=== PATIENT | male | born 1930 | race Caucasian/White ===

== ENCOUNTER 2016-12-23 06:34 | Inpatient (IN) | payer MEDICARE ==
--- NOTE | ~2016-12-23 | IDS ---
Interim Discharge Summary [facility] [address] [place]. [address] NAME: FAUSTINO HOPE : 29 STATUS : ADM IN [facility]#: [id number] AGE: 86 ADM/REG DATE : 12/23/16 MR#: [id number] REPORT SERV DATE: 12/27/16 DICTATED BY: DATE: REPORT STATUS : Draft TRANSCRIBED BY: MODL DATE: 12/27/16 ADMISSION DATE: 12/23/2016 DISCHARGE DATE: The patient has been cared for by the Hospitalist Service. ATTENDING DOCTOR: 1. Seth Clark MD. 2. Jose Whitney MD. CONSULTANTS: Included Speech Therapy. CURRENT DIAGNOSES: 1. Sepsis-due to left lower lobe and right lower lobe pneumonia and urinary tract infection. 2. Pansensitive E coli urinary tract infection. 3. Pansensitive E coli bacteremia. 4. Advanced Alzheimer's-essentially nonverbal, presently bed-bound. 5. Benign prostatic hypertrophy, status post TURP. 6. History of hypothyroidism-low TSH this admission. Repeat values pending for possible dose decrease. 7. History of chronic kidney disease, stage 3 with baseline creatinine 1.3-1.6, currently 0.9. 8. Probable anemia of chronic kidney disease. 9. Acute hypoxemic respiratory failure due to pneumonia-resolving. 10.Chronic constipation. 11.Rash-appears to be contact dermatitis. Monitor for possible drug reaction. 12.Generalized weakness-for probable inpatient rehab. 13.History of dysphagia, but no evidence of aspiration this admission. 14.History of chronic obstructive pulmonary disease. IMAGIN. Portable chest x-ray, 12/23, shows left basilar atelectasis versus infiltrate. 2. CT abdomen and pelvis, 12/23, shows right lower lobe pneumonia, cardiomegaly, coronary artery disease, marked enlargement of the prostate. Early impaction. Compression injury T11, age indeterminate. 3. Portable chest x-ray, 12/26, shows persistent left posterior infiltrate with minimal effusion. PERTINENT LABS: Admission blood gas; pH 7.43, pCO2 31, PO2 85, oxygen saturation 96% on 4 L nasal cannula. Creatinine values ranging from 0.9 to 1.3-at or below patient's baseline. Electrolytes have been normal. Liver enzymes have not been tested. TSH is 0.267 with repeat pending. Lactic acid level is normal. White blood cell count at admission 10.0, presently 5.8; hemoglobin values ranging from 10.6-9.2; platelets normal. Coagulation studies, normal. Urinalysis cloudy with trace ketones, large leukocyte esterase, nitrite positive, 143 red blood cells, greater than 182 white blood cells with many clumps, and Interim Discharge Summary [address] [place]. [address] NAME: FAUSTINO HOPE : 29 STATUS : ADM IN [facility]#: [id number] AGE: 86 ADM/REG DATE : 12/23/16 MR#: [id number] REPORT SERV DATE: 12/27/16 DICTATED BY: DATE: REPORT STATUS : Draft TRANSCRIBED BY: MODL DATE: 12/27/16 occasional bacteria. Blood cultures, 1/2 positive for pansensitive E coli. Urine culture positive for pansensitive E coli. BRIEF HISTORY: For full details, please see the previously dictated history of present illness by Dr. Chua. This is an 86-year-old white male with history of severe Alzheimer's dementia; chronic kidney disease, stage 3, who presents to the emergency department with reported fevers, decrease in mentation, increase in weakness. Initial evaluation in the emergency department notable for temperature with 101.6 degrees with a pulse of 89, blood pressure of 100/60. White blood cell count elevated at 10.0. Chest x- ray was nondiagnostic, but patient did demonstrate evidence of a urinary tract infection and clinical suspicion of pneumonia, and thus was admitted to the Hospitalist Service for management of sepsis due to pneumonia and UTI. HOSPITAL COURSE: The patient was admitted to [address] [place] [address], and had multiple attendings during his hospitalization. He has been seen by Dr. Seth Clark, Dr. Whitney, and on 12/27, seen by myself. His initial antibiotics have included cefepime, vancomycin, and Flagyl. He was treated with these antibiotics, through 12/25, at which point, he was transitioned to Levaquin for evidence of pansensitive E coli in the blood and urine. The patient was evaluated by the speech therapist and did not have any significant aspiration, although a modified diet was recommended. Thus, he was not felt to require treatment for ongoing aspiration pneumonia, rather community-acquired pneumonia with pansensitive E coli UTI and pansensitive E coli bacteremia. He has been treated with aggressive nebulizer treatments and pulmonary toilet. He remains weaker than baseline per his , who was concerned that he is not yet ready to return to [facility]. He resides in the memory care unit, which functions more as an assisted living. Thus, physical therapy evaluation for jail care and inpatient rehab at [facility] is requested. The patient will need to complete 14 days total of antibiotics for the E coli urinary tract infection with associated bacteremia. Only new issues today include note of a low TSH on current dose of levothyroxine. Repeat TSH and free T4 are pending for the morning for possible decrease in his home dose of levothyroxine. Also, he developed a nonspecific rash on his back this morning. The rash is only present on his back and no where else. Doubt that it is a reaction to Levaquin after two days of the antibiotic, and appears more like prickly heat or contact dermatitis. We will recommend treating with topical hydrocortisone for re-evaluation tomorrow. Also, his Kirkland catheter will be discontinued today, to ensure that he is able to void independently. DISPOSITION: Anticipate the patient will be able to discharge to jail facility at [facility] for additional physical rehabilitation prior to return to the memory unit, and anticipate that he may be able to discharge as early as 12/28 or 12/29 pending clinical course and necessary approvals. Interim Discharge Summary [address] [place]. [address] NAME: FAUSTINO HOPE : 29 STATUS : ADM IN [facility]#: [id number] AGE: 86 ADM/REG DATE : 12/23/16 MR#: [id number] REPORT SERV DATE: 12/27/16 DICTATED BY: DATE: REPORT STATUS : Draft TRANSCRIBED BY: LIANA DATE: 12/27/16 AKD[place]/LIANA Kike Harris M.D. / [id number] CC: Kike Harris M.D.
--- NOTE | ~2016-12-23 | DS ---
Discharge Summary [facility] [address] [place]. [address] NAME: FAUSTINO HOPE : 29 STATUS : DIS IN PAT#: [id number] AGE: 86 ADM/REG DATE : 12/23/16 MR#: [id number] REPORT SERV DATE: 12/30/16 DICTATED BY: ELVER FLORES DATE: 12/29/16 REPORT STATUS : Draft TRANSCRIBED BY: MODL DATE: 12/29/16 ADMISSION DATE: 12/23/2016 DISCHARGE DATE: 12/29/2016 Code status of the patient is DNR, comfort measures only, and transfer is to Hospice Care. DIAGNOSES ON TRANSFER: As follows: 1. Sepsis secondary to left lower lobe and right lower lobe pneumonia and urinary tract infection - this has resolved. 2. Aspiration pneumonia, this is stable. 3. Pansensitive E. coli urinary tract infection - the patient has received IV Levaquin, and in fact, continues to be on IV Levaquin for this. It is for Hospice to discontinue this. 4. So far the patient has received IV Levaquin from 12/23/[address] till 12/29/2016 which is a total of six days. OTHER DIAGNOSES: Also include: 1. Advanced dementia and bed-bound status and failure to thrive, the patient is pretty much nonverbal and bed bound as mentioned above. 2. Other chronic medical issues include benign prostatic hypertrophy, status post transurethral resection of prostate. 3. History of chronic kidney disease, stage III, with baseline creatinine fluctuating between 1.3 and 1.6 but now creatinine is actually 0.9. 4. Anemia of chronic disease. 5. Acute hypoxemic respiratory failure due to pneumonia that has resolved. 6. History of dysphagia but no evidence of aspiration during this admission actually. However, the patient may have aspirated previously and his pneumonia is most likely secondary to both infection and aspiration. BRIEF HOSPITAL COURSE: The patient is an 86-year-old patient with advanced dementia who was admitted to [facility] on the with worsening encephalopathy. For details, please see signs and symptoms in history and physical exam dictated by Dr. Chua on 12/23/2016. The patient essentially was brought in for fevers. Initially, he was found to be septic with fever and pneumonia in the left lower lobe and also urinary tract infection which eventually came back with growth of E. coli, which was pansensitive. Initially, his procalcitonin was only 0.2 and lactic acid was 1.2. The patient's overall status however was extremely poor because of extremely advanced dementia. The patient is very lethargic, barely opens his eyes, and this is baseline. He is able to eat something when family is able to get him to get up and eat, otherwise, his baseline is pretty much bed-bound. He was started on appropriate antibiotics, and cultures were obtained. Initially, he was on cefepime, vancomycin, and Flagyl for a while before the antibiotics were changed to Levaquin. The antibiotics were changed because his urine culture came back positive for E. coli sensitive to quinolones. Anyhow, for now, his sepsis has resolved but his mental status and chronic deconditioned Discharge Summary [address] [address] NAME: FAUSTINO HOPE : 28 STATUS : DIS IN PAT#: [id number] AGE: 86 ADM/REG DATE : 12/23/16 MR#: [id number] REPORT SERV DATE: 12/30/16 DICTATED BY: ELVER FLORES DATE: 12/29/16 REPORT STATUS : Draft TRANSCRIBED BY: MODL DATE: 12/29/16 status remains unchanged because of advanced dementia. After detailed discussion with , decided to accept hospice care and has been explained all other options. At this time, family has agreed for hospice care, and hence, I am transferring the patient to the care of [facility] at this time on 12/29/2016. DICTATED BY: Bam Brady/LIANA Elver Flores M.D. / [id number] CC: Elver Flores M.D.
--- NOTE | ~2016-12-23 | HP ---
History And Physical [place] [address] [facility] [place]. [address] NAME: FAUSTINO MARVIN : 28 STATUS : REG ER PAT#: [id number] AGE: 86 ADM/REG DATE : 12/23/16 MR#: [id number] REPORT SERV DATE: 12/23/16 DICTATED BY: DONNIE CHILD DATE: 12/23/16 REPORT STATUS : Draft TRANSCRIBED BY: MODL DATE: 12/23/16 DATE OF ADMISSION: 12/23/2016 POINT OF ENTRY: [facility] Emergency Department. CHIEF COMPLAINT: Fevers. HISTORY OF PRESENT ILLNESS: Mr. Marvin is an 86-year-old gentleman with history of severe Alzheimer's dementia, hypothyroidism, and chronic kidney disease stage 3, who presents to the emergency department today with reports of fevers. The patient has severe Alzheimer's dementia and history is obtained from the patient's who is at bedside as well as his caregiver. The patient is a long-term resident of the Memory Care Unit of [facility]. His lives in another location within [facility]. She states that all day Tuesday he was doing fine, on Tuesday she and the hired caregivers did notice that throughout the day he was becoming weaker and was sleeping more than usual. Otherwise, there were no additional symptoms that were out of the ordinary and his vitals which were checked throughout today were unremarkable. At approximately 2:00 a.m., his caregiver heard some choking or gurgling type sound, found him sitting up in bed, nauseated and either vomiting or dry heaving, the history is not clear. When she went to care for him and sit him up, she noted that he was very hot to the touch as well as diaphoretic and clammy. She notified the nurse of the [facility] who then checked his vitals and noted a temperature of a 102 degrees Fahrenheit. I am unaware of the remainder of the vitals. They then presented to the emergency department here. Initial evaluation in the emergency department was notable for Temperature 101.6 with a pulse of 89, blood pressure 101/62. Initial evaluation shows a white count of 10.0. Lactic acid within normal limits as well as procalcitonin. Chest x-ray was nondiagnostic. CT scan of the abdomen and pelvis performed for reports for possible nausea and vomiting shows a left lower lobe infiltrate as well as some nonobstructive left-sided nephrolithiasis and a 3 cm soft tissue mass at left upper quadrant. The patient was started on some IV antibiotics and fluids, admitted to the Hospitalist Service. REVIEW OF SYSTEMS: Comprehensive review of systems otherwise negative unless listed in history present illness. PREVIOUS MEDICAL HISTORY: 1. Severe Alzheimer's dementia, now fairly nonverbal. 2. Hypothyroidism. 3. Gout. 4. BPH. 5. Skin cancer. 6. Chronic kidney disease, stage 3. Baseline creatinine 1.3 to 1.6. 7. History of aspiration and dysphagia, no longer on aspiration precautions per the History And Physical [address] [address] NAME: FAUSTINO MARVIN : 29 STATUS : REG ER PAT#: [id number] AGE: 86 ADM/REG DATE : 12/23/16 MR#: [id number] REPORT SERV DATE: 12/23/16 DICTATED BY: DONNIE CHILD DATE: 12/23/16 REPORT STATUS : Draft TRANSCRIBED BY: LIANA DATE: 12/23/16 patient's request. SURGICAL HISTORY: 1. Right total knee. 2. TURP. 3. Appendectomy. ALLERGIES: TO PENICILLIN AND CODEINE. HOME MEDICATIONS: Pending at the time of dictation. SOCIAL HISTORY: He is a former smoker, about 5-pack-year smoking history. Denies alcohol. Denies illicits. Again, he is a long-term resident of the Memory Care Unit of [facility]. He is . FAMILY MEDICAL HISTORY: Mother with breast cancer. Father with coronary artery disease. Siblings with pancreatic cancer and coronary artery disease. LABS AND IMAGIN. White count is 10.0, hemoglobin is 10.4, hematocrit is 31.5, platelet count is 187, and INR 1.3. 2. Sodium is 144, potassium 3.4, chloride 112, carbon dioxide 23, BUN 22, creatinine 1.33, glucose is 146, calcium is 7.9, albumin is 6.1, bilirubin is 0.7, albumin is 3.0, ALT is 17, AST is 16, and alkaline phosphatase is 86. 3. Lactic acid is 1.2. 4. Procalcitonin is 0.21. 5. Urinalysis; spec gravity is 1.012 cloudy with trace ketones, large leukocyte esterase, positive nitrites, 143 red with greater than 182 white blood cells per high power field with many bacteria, this is from a Kirkland catheter catch. 6. Chest x-ray per my review shows possible left lower lobe infiltrate. 7. CT scan of the abdomen and pelvis shows left lower lobe infiltrate and consolidation as well as nonobstructive left-sided nephrolithiasis and a 3-cm soft tissue mass in left upper quadrant with no prior imaging for comparison. 8. EKG per my review shows normal sinus rhythm without any evidence of acute ischemia or infarction. 9. ABG; pH is 7.43, pCO2 is 31, PO2 is 85, bicarb is 20, and saturating 96% on 3 L by nasal cannula. PHYSICAL EXAMINATION: VITAL SIGNS: Temperature 101.6 degrees Fahrenheit, pulse is 89, respirations 20, saturating 91% on 3 L nasal cannula, and blood pressure 101/62. On recheck blood pressure is 105/51, MAP of 77, pulse of 84, and saturating 97% on 3 L of nasal cannula. GENERAL: The patient is a chronically ill-appearing, elderly male who is with family at bedside, who is not alert or cooperative with exam. HEENT: Atraumatic and normocephalic. Slightly dry mucous membranes. Pupils are equal and round. NECK: No jugular venous distention. No carotid bruits. History And Physical [address] [address] NAME: FAUSTINO MARVIN : 29 STATUS : REG ER PAT#: [id number] AGE: 86 ADM/REG DATE : 12/23/16 MR#: [id number] REPORT SERV DATE: 12/23/16 DICTATED BY: DONNIE CHILD DATE: 12/23/16 REPORT STATUS : Draft TRANSCRIBED BY: MODL DATE: 12/23/16 CARDIAC: Regular rate and rhythm. No murmurs or gallops. Normal S1, S2. LUNGS: Limited examination by patient's cooperation, but I do appreciate some left basilar rhonchi. He is on oxygen, but in no distress. ABDOMEN: Soft, nontender, and nondistended. Good bowel sounds. No rebound, guarding, or rigidity. EXTREMITIES: Warm and perfused. No cyanosis, clubbing, or edema. SKIN: Warm and dry. PSYCH: Unable to assess. NEURO: The patient is moving all extremities, but otherwise secondary to dementia noncooperative with neuro exam. ASSESSMENT AND PLAN: Mr. Marvin is an 86-year-old gentleman with severe Alzheimer's dementia, who was found to have a fever of 102 degrees Fahrenheit early this morning and found to have evidence of left lower lobe pneumonia as well as urinary tract infection and sepsis. PROBLEM LIST: 1. Left lower lobe pneumonia. 2. Sepsis. 3. Urinary tract infection. 4. Acute hypoxic respiratory failure. 5. Severe Alzheimer's dementia. 6. History of aspiration and dysphagia. PLAN: 1. Left lower lobe pneumonia. We will admit the patient to the Hospitalist Service. We will place the patient on broad-spectrum antibiotics of cefepime, vancomycin, and Flagyl given his history of dysphagia and possible aspiration risk as well as residence in a long-term healthcare facility. Follow up blood cultures. Try to obtain sputum culture as well as urinary antigens. 2. Urinary tract infection. The patient also has evidence of urinary tract infection. Follow up urine cultures. 3. Sepsis. The patient has fevers as well as tachypnea qualifying for sepsis. Lactic acid and procalcitonin within normal limits. Follow up blood cultures. Provide aggressive IV fluid hydration as well as antibiotics. 4. Acute hypoxic respiratory failure. We will try to place him on some scheduled DuoNebs with EzPAP in an attempt to improve the patient's aeration and wean from oxygen. 5. History of aspiration and dysphagia. According to , the patient was previously placed on nectar thickened liquids as well as maybe restricted diet, which the patient ultimately ended up refusing. I do have some concern that he may have aspirated causing his pneumonia, we will place him on appropriate antibiotic coverage. Ask Speech Therapy to evaluate the patient. 6. DVT prophylaxis. Lovenox. CODE STATUS: The patient is a DNR, this was confirmed with at bedside. History And Physical [address] [place]. [address] NAME: FAUSTINO MARVIN : 28 STATUS : REG ER PAT#: [id number] AGE: 86 ADM/REG DATE : 12/23/16 MR#: [id number] REPORT SERV DATE: 12/23/16 DICTATED BY: DONNIE CHILD DATE: 12/23/16 REPORT STATUS : Draft TRANSCRIBED BY: LIANA DATE: 12/23/16 TIP/LIANA Donnie Child MD / [id number] CC: Ross Sanchez DO
[2016-12-23 05:04] LABS: BE (BASE EXCESS) -3.4 MEQ/L (0 +/- 2.5); CARBOXYHEMOGLOBIN 0.5 % (0-3); HEMOBLOGIN CONTENT 10.7 G/DL (14-18); INSTRUMENT SERIAL # 8087; METHEMOGLOBIN 0.2 % (0-3); O2 CONTENT 14.5 VOL% (18-24); OPERATOR ID 33449; PCO2 (CO2 TENSION) 31 MMHG (35-45); PO2 (O2 TENSION) 85 MMHG (79-93); SAMPLE Arterial; pH 7.43 (7.37-7.43)
[2016-12-23 05:05] LABS: ALLENS TEST Pos; DEVICE NC
[2016-12-23 05:05] LABS: BASOPHILS 0.1 %; BASOPHILS ABSOLUTE 0.01 10/3/uL (0.0-0.16); EOSINOPHILS 0 %; ER CBC TAT 0 Hrs 12 Mins; HEMATOCRIT 31.5 % (40.0-51.0); HEMOGLOBIN 10.4 g/dL (13.6-17.8); IMMATURE GRANULOCYTES 0.2 %; IMMATURE GRANULOCYTES ABSOLUTE 0.02 10/3/uL (0.0-0.11); LYMPHOCYTES 2.3 %; LYMPHOCYTES ABSOLUTE 0.23 10/3/uL (0.67-4.30); MANUAL DIFF NO %; MEAN CORPUSCULAR HEMOGLOB 31.2 pg (26.0-34.0); MEAN CORPUSCULAR VOLUME 94.6 fL (80-100); MEAN PLATELET VOLUME 9.5 fL (9.2-13.0); NEUTROPHILS 93.4 %; PLATELET COUNT 187 10/3/uL (150-400); RBC DISTRIBUTION WIDTH 13.2 % (12.0-16.0); RED CELL COUNT 3.33 10/6/uL (4.7-6.1)
[2016-12-23 05:07] LABS: INTERNATIONAL NORMAL RATI 1.3 UNITS (-)
[2016-12-23 05:08] LABS: PARTIAL THROMBO TIME 33.2 SEC (22.5-37.2)
[2016-12-23 05:20] LABS: CHLORIDE, SERUM 112 MMOL/L (96-112); CREATININE 1.33 MG/DL (0.70-1.30); GFR AFRICAN AMERICAN 55 ML/MIN (>=60); GFR NON AFRICAN AMERICAN 48 ML/MIN (>=60); GLOBULIN 3.1 G/DL (2.5-4.1); SGOT(AST) 16 U/L (5-40); SGPT(ALT) 17 U/L (5-65); SODIUM, SERUM 144 MMOL/L (135-148); TOTAL BILIRUBIN 0.7 MG/DL (0-1.2); TOTAL PROTEIN 6.1 G/DL (6.0-8.5)
[2016-12-23 05:27] LABS: ALKALINE PHOSPHATASE 86 U/L (45-117); BUN (BLOOD UREA NITROGEN) 22 MG/DL (6-23); CALCIUM, SERUM 7.9 MG/DL (8.5-10.4); CO2 (CARBON DIOXIDE) 23 MMOL/L (24-34); GLUCOSE, SERUM 146 MG/DL (60-99); POTASSIUM, SERUM 3.4 MMOL/L (3.5-5.3)
[2016-12-23 05:29] LABS: LACTATE 1.2 MMOL/L (0.3-2.4)
[2016-12-23 05:30] LABS: PROTIME (NOT ORD) 15.9 SEC (12.0-14.5)
[2016-12-23 05:51] LABS: PROCALCITONIN 0.21 ng/mL (<0.5)
[2016-12-23 06:16] LABS: ASCORBIC ACID (UR NOT ORDER) 40 (NEG); BILIRUBIN, URINE NEGATIVE (NEG); ER URINALYSIS TAT 0 Hrs 00 Mins; KETONE, URINE TRACE MG/DL (NEG); LEUKOCYTE ESTERASE(NOT OR LARGE (NEG); NITRITE (URINE) POS (NEG); WBC (NOT ORDERED) (RFLEX) > 182 (0-5)
[2016-12-23] MEDS ORDERED: CELEXA10 PO (07:28)
[2016-12-23] MEDS ORDERED: LEVOTHYROXIN75 MCG PO (07:28)
[2016-12-23] MEDS ORDERED: ASAB PO (07:29)
[2016-12-23] MEDS ORDERED: VITC500 PO (07:29)
[2016-12-23] MEDS ORDERED: Z100 PO (07:29)
[2016-12-23] MEDS ORDERED: LAMICTAL25 PO (07:30)
[2016-12-23] MEDS ORDERED: B150 PO (07:30)
[2016-12-23] MEDS ORDERED: FLOMAX4 PO (07:30)
[2016-12-23] MEDS ORDERED: SINGULAIR1 PO (07:31)
[2016-12-23] MEDS ORDERED: LINZESS 290 M290 MCG PO (07:31)
[2016-12-24 05:28] LABS: BASOPHILS 0.1 %; BASOPHILS ABSOLUTE 0.01 10/3/uL (0.0-0.16); EOSINOPHILS 0.1 %; EOSINOPHILS ABSOLUTE 0.01 10/3/uL (0.0-0.53); HEMOGLOBIN 8.8 g/dL (13.6-17.8); IMMATURE GRANULOCYTES 0.3 %; IMMATURE GRANULOCYTES ABSOLUTE 0.02 10/3/uL (0.0-0.11); LYMPHOCYTES 14.8 %; MEAN CORPUS HGB CONC 32.2 g/dL (32.0-36.0); MEAN CORPUSCULAR HEMOGLOB 30.8 pg (26.0-34.0); MEAN CORPUSCULAR VOLUME 95.5 fL (80-100); MEAN PLATELET VOLUME 9.9 fL (9.2-13.0); MONOCYTES 7.7 %; MONOCYTES ABSOLUTE 0.52 10/3/uL (0.21-1.20); NEUTROPHILS ABSOLUTE 5.21 10/3/uL (2.02-8.40); PLATELET COUNT 142 10/3/uL (150-400); RBC DISTRIBUTION WIDTH 13.8 % (12.0-16.0); RED CELL COUNT 2.86 10/6/uL (4.7-6.1); WHITE BLOOD CELLS 6.8 10/3/uL (4.5-10.5)
[2016-12-24 05:30] LABS: HEMATOCRIT 27.3 % (40.0-51.0); MANUAL DIFF NO %
[2016-12-24 05:45] LABS: ALBUMIN 3.1 G/DL (3.5-5.0); BUN (BLOOD UREA NITROGEN) 19 MG/DL (6-23); CHLORIDE, SERUM 115 MMOL/L (96-112); CO2 (CARBON DIOXIDE) 24 MMOL/L (24-34); CREATININE 1.06 MG/DL (0.70-1.30); GFR AFRICAN AMERICAN 73 ML/MIN (>=60); GFR NON AFRICAN AMERICAN 63 ML/MIN (>=60); POTASSIUM, SERUM 3.8 MMOL/L (3.5-5.3); SODIUM, SERUM 147 MMOL/L (135-148)
[2016-12-24 05:46] LABS: GLUCOSE, SERUM 113 MG/DL (60-99); PHOSPHORUS, SERUM 1.4 MG/DL (2.5-4.5)
[2016-12-25 09:12] LABS: BASOPHILS 0.1 %; BASOPHILS ABSOLUTE 0.01 10/3/uL (0.0-0.16); EOSINOPHILS 0.4 %; EOSINOPHILS ABSOLUTE 0.03 10/3/uL (0.0-0.53); HEMATOCRIT 30.2 % (40.0-51.0); HEMOGLOBIN 9.9 g/dL (13.6-17.8); IMMATURE GRANULOCYTES 0.3 %; IMMATURE GRANULOCYTES ABSOLUTE 0.02 10/3/uL (0.0-0.11); LYMPHOCYTES 11.7 %; LYMPHOCYTES ABSOLUTE 0.86 10/3/uL (0.67-4.30); MANUAL DIFF NO %; MEAN CORPUS HGB CONC 32.8 g/dL (32.0-36.0); MEAN CORPUSCULAR VOLUME 94.7 fL (80-100); MEAN PLATELET VOLUME 10.4 fL (9.2-13.0); MONOCYTES 6.3 %; MONOCYTES ABSOLUTE 0.46 10/3/uL (0.21-1.20); NEUTROPHILS 81.2 %; NEUTROPHILS ABSOLUTE 5.96 10/3/uL (2.02-8.40); PLATELET COUNT 183 10/3/uL (150-400); RBC DISTRIBUTION WIDTH 13.9 % (12.0-16.0); RED CELL COUNT 3.19 10/6/uL (4.7-6.1); WHITE BLOOD CELLS 7.3 10/3/uL (4.5-10.5)
[2016-12-25 09:25] LABS: BUN (BLOOD UREA NITROGEN) 16 MG/DL (6-23); CALCIUM, SERUM 9.2 MG/DL (8.5-10.4); CHLORIDE, SERUM 114 MMOL/L (96-112); CO2 (CARBON DIOXIDE) 21 MMOL/L (24-34); CREATININE 1.11 MG/DL (0.70-1.30); GFR AFRICAN AMERICAN 69 ML/MIN (>=60); GFR NON AFRICAN AMERICAN 59 ML/MIN (>=60); GLUCOSE, SERUM 150 MG/DL (60-99); POTASSIUM, SERUM 3.8 MMOL/L (3.5-5.3); SODIUM, SERUM 146 MMOL/L (135-148)
[2016-12-26 04:10] LABS: BASOPHILS 0.3 %; BASOPHILS ABSOLUTE 0.02 10/3/uL (0.0-0.16); EOSINOPHILS 1.7 %; HEMATOCRIT 27.7 % (40.0-51.0); HEMOGLOBIN 9.2 g/dL (13.6-17.8); IMMATURE GRANULOCYTES 0.3 %; IMMATURE GRANULOCYTES ABSOLUTE 0.02 10/3/uL (0.0-0.11); LYMPHOCYTES 13.1 %; LYMPHOCYTES ABSOLUTE 0.76 10/3/uL (0.67-4.30); MEAN CORPUS HGB CONC 33.2 g/dL (32.0-36.0); MEAN CORPUSCULAR HEMOGLOB 31.2 pg (26.0-34.0); MEAN CORPUSCULAR VOLUME 93.9 fL (80-100); MEAN PLATELET VOLUME 10.2 fL (9.2-13.0); MONOCYTES 9.8 %; MONOCYTES ABSOLUTE 0.57 10/3/uL (0.21-1.20); NEUTROPHILS 74.8 %; NEUTROPHILS ABSOLUTE 4.35 10/3/uL (2.02-8.40); PLATELET COUNT 176 10/3/uL (150-400); RED CELL COUNT 2.95 10/6/uL (4.7-6.1); WHITE BLOOD CELLS 5.8 10/3/uL (4.5-10.5)
[2016-12-26 04:12] LABS: MANUAL DIFF NO %
[2016-12-26 04:27] LABS: BUN (BLOOD UREA NITROGEN) 15 MG/DL (6-23); CHLORIDE, SERUM 113 MMOL/L (96-112); CO2 (CARBON DIOXIDE) 23 MMOL/L (24-34); CREATININE 0.94 MG/DL (0.70-1.30); GFR AFRICAN AMERICAN 84 ML/MIN (>=60); GFR NON AFRICAN AMERICAN 73 ML/MIN (>=60); POTASSIUM, SERUM 3.8 MMOL/L (3.5-5.3); SODIUM, SERUM 146 MMOL/L (135-148)
[2016-12-26 04:28] LABS: GLUCOSE, SERUM 97 MG/DL (60-99)
[2016-12-28 05:58] LABS: BASOPHILS 0.1 %; BASOPHILS ABSOLUTE 0.01 10/3/uL (0.0-0.16); EOSINOPHILS 0.1 %; EOSINOPHILS ABSOLUTE 0.01 10/3/uL (0.0-0.53); HEMOGLOBIN 9.9 g/dL (13.6-17.8); IMMATURE GRANULOCYTES 0.4 %; IMMATURE GRANULOCYTES ABSOLUTE 0.05 10/3/uL (0.0-0.11); LYMPHOCYTES 2.5 %; LYMPHOCYTES ABSOLUTE 0.31 10/3/uL (0.67-4.30); MEAN CORPUSCULAR HEMOGLOB 30.7 pg (26.0-34.0); MEAN CORPUSCULAR VOLUME 93.2 fL (80-100); MEAN PLATELET VOLUME 9.8 fL (9.2-13.0); MONOCYTES 5.2 %; MONOCYTES ABSOLUTE 0.66 10/3/uL (0.21-1.20); NEUTROPHILS 91.7 %; RBC DISTRIBUTION WIDTH 13.8 % (12.0-16.0); RED CELL COUNT 3.22 10/6/uL (4.7-6.1)
[2016-12-28 06:03] LABS: MANUAL DIFF NO %; PLATELET COUNT 294 10/3/uL (150-400); WHITE BLOOD CELLS 12.6 10/3/uL (4.5-10.5)
[2016-12-28 06:21] LABS: BUN (BLOOD UREA NITROGEN) 17 MG/DL (6-23); CALCIUM, SERUM 8.8 MG/DL (8.5-10.4); CHLORIDE, SERUM 111 MMOL/L (96-112); CO2 (CARBON DIOXIDE) 28 MMOL/L (24-34); FREE T4 1.12 NG/DL (0.76-1.46); GFR AFRICAN AMERICAN 70 ML/MIN (>=60); GFR NON AFRICAN AMERICAN 60 ML/MIN (>=60); POTASSIUM, SERUM 3.9 MMOL/L (3.5-5.3); SODIUM, SERUM 144 MMOL/L (135-148)
[2016-12-28 06:22] LABS: GLUCOSE, SERUM 140 MG/DL (60-99)
[2016-12-28 10:45] LABS: HEMATOCRIT 31.4 % (40.0-51.0); HEMOGLOBIN 10.3 g/dL (13.6-17.8)
[2016-12-28 20:09] LABS: HEMATOCRIT 28.9 % (40.0-51.0); HEMOGLOBIN 9.6 g/dL (13.6-17.8)
[2016-12-29 02:39] LABS: HEMATOCRIT 26.9 % (40.0-51.0); HEMOGLOBIN 8.6 g/dL (13.6-17.8)
[2016-12-29 10:43] LABS: HEMATOCRIT 29.1 % (40.0-51.0); HEMOGLOBIN 9.7 g/dL (13.6-17.8)
== END 2016-12-29 15:57 | disposition hospice, inpatient (51) | DRG 871 ==
LOC: ER 06:34 → ER/OF 10:41 → 7NO 12:31
PROVIDERS: Hospitalist; Internal Medicine; Specialist
DX: A41.51 Sepsis due to Escherichia coli [E. coli] (principal); J69.0 Pneumonitis due to inhalation of food and vomit; J96.21 Acute and chronic respiratory failure with hypoxia; N17.9 Acute kidney failure, unspecified; K92.0 Hematemesis; E87.2 Acidosis; R13.10 Dysphagia, unspecified; N30.01 Acute cystitis with hematuria; Z51.5 Encounter for palliative care; J44.9 Chronic obstructive pulmonary disease, unspecified; G30.9 Alzheimer's disease, unspecified; N18.3 Chronic kidney disease, stage 3 (moderate); B96.20 Unspecified Escherichia coli [E. coli] as the cause of diseases classified elsewhere; F02.80 Dementia in other diseases classified elsewhere, unspecified severity, without behavioral disturbance, psychotic disturbance, mood disturbance, and anxiety; D63.1 Anemia in chronic kidney disease; N40.0 Benign prostatic hyperplasia without lower urinary tract symptoms; E03.9 Hypothyroidism, unspecified; N20.0 Calculus of kidney; Z66 Do not resuscitate; Z74.01 Bed confinement status; Z85.828 Personal history of other malignant neoplasm of skin; Z87.891 Personal history of nicotine dependence; Z96.651 Presence of right artificial knee joint; Z88.0 Allergy status to penicillin; Z88.5 Allergy status to narcotic agent
CPT/HCPCS: 36600; 71010; 74176; 80048; 80053; 80069; 81001; 82805; 83605; 83735; 84145; 84439; 84443; 85014; 85018; 85025; 85610; 85730; 87040; 87077; 87086; 87150; 87186; 87449; 92610-GN; 93005; 94640; 96365; 99285; A9270-GY; G8996-CL-GN; G8997-CL-GN; G8998-CL-GN; J0692; J1956; J2405; J3370; P9047